=== PATIENT | female | born 1980 | race Caucasian/White ===

== ENCOUNTER 2017-07-15 23:09 | Emergency (ER) | payer BC ==
[~2017-07-15] VITALS: Ht 157.5 cm; Wt 69.1 kg
[~2017-07-15 23:09] MED LIST: AMOXICILLIN 50500 MG PO; DOXYCYCLINE 10100 MG PO; FLEXERIL10 MG PO; LORTAB 5/500 501 TAB PO; MACROBID100 MG PO; NAPROSYN500 MG PO; NITROFURANTOIN; NO HOME MEDICATIONS; PREDNISONE20 MG PO; PROAIR HFA0.09 MG/AC IH; ZITHROMAX Z PA250 MG PO; same
[2017-07-15 23:14] VITALS: BP 107/65; TEMP 98.1
[2017-07-16 00:17] VITALS: PULSE 75
== END 2017-07-16 00:15 | disposition home or self-care (01) ==
LOC: COL.ER 23:09
DX: T63.481A Toxic effect of venom of other arthropod, accidental (unintentional), initial encounter (principal); Z23 Encounter for immunization
CPT/HCPCS: J8540

== ENCOUNTER 2020-04-05 06:51 | Emergency (ER) | payer SELFPAY ==
[~2020-04-05] VITALS: Ht 157.5 cm; Wt 77.3 kg
[2020-04-05 06:57] VITALS: BP 122/75; TEMP 98.3
[2020-04-05] MEDS ORDERED: FLEXERIL 1010 MG/TAB PO (07:19)
[2020-04-05 08:02] VITALS: PULSE 57
== END 2020-04-05 08:02 | disposition home or self-care (01) ==
LOC: COL.ER 06:51
DX: M54.5 Low back pain (principal); Z98.51 Tubal ligation status
CPT/HCPCS: J1885

== ENCOUNTER 2020-11-02 06:40 | Emergency (ER) | payer OTHER ==
[~2020-11-02] VITALS: Ht 157.5 cm; Wt 68.2 kg
[~2020-11-02 06:40] MED LIST changes: +FLEXERIL 1010 MG/TAB PO
[2020-11-02 06:56] VITALS: TEMP 98.2
[2020-11-02 08:00] LABS: BASO % 0.3 % (0.0-2.0); EOS # 0.1 (0.0-0.7); EOS % 1.7 % (0-4.0); GRAN # 5.2 (1.4-6.5); GRAN % 72.5 % (42.2-75.2); HEMATOCRIT 37.6 % (37.0-47.0); HEMOGLOBIN 12.5 g/dl (12.5-16.0); LYMPH # 1.3 (1.2-3.4); MEAN CELL VOLUME 86 fl (80.0-100.0); MEAN CORPUSCULAR HEMOGLOBIN 29 pg (27.0-31.0); MEAN CORPUSCULAR HGB CONC 33 g/dl (33.0-37.0); MEAN PLATELET VOLUME 10.3 fl (7.4-10.4); MONO # 0.5 (0.1-0.6); MONO % 7.2 % (1.7-9.3); PLATELET COUNT 245 K/mm3 (130-400); RED BLOOD COUNT 4.35 M/mm3 (4.10-5.30); REDCELL DISTRIBUTION WIDTH-CV 12.6 % (11.5-14.5)
[2020-11-02 08:06] LABS: ALBUMIN 3.9 gm/dL (3.5-5.0); BILIRUBIN,TOTAL 0.3 mg/dL (0.0-1.0); CALCIUM 8.7 mg/dL (8.4-10.2); CREATININE, serum 0.85 (0.52-1.25); POTASSIUM 3.9 mmol/L (3.4-5.0)
[2020-11-02 09:44] VITALS: BP 118/74; PULSE 68
== END 2020-11-02 09:45 | disposition home or self-care (01) ==
LOC: COL.ER 06:40
PROVIDERS: Emergency Medicine
DX: U07.1 COVID-19 (principal); S40.862A Insect bite (nonvenomous) of left upper arm, initial encounter; J20.9 Acute bronchitis, unspecified; M54.5 Low back pain; J02.0 Streptococcal pharyngitis; Z53.21 Procedure and treatment not carried out due to patient leaving prior to being seen by health care provider; Z90.89 Acquired absence of other organs

== ENCOUNTER → 2020-11-24 | Outpatient (CLI) | payer OTHER ==
[2005-09-04 08:39] VITALS: TEMP 97.4
== END ==
LOC: COL.RAD 09:37
DX: R10.11 Right upper quadrant pain (principal)
CPT/HCPCS: A9537; J2805

== ENCOUNTER 2020-12-10 07:01 | Day surgery (SDC) | payer OTHER ==
[2020-12-10] VITALS (7 sets, daily range): BP systolic 108–156; BP diastolic 63–83; PULSE 49–78; TEMP 97.2–98.6
[~2020-12-10] VITALS: Ht 157.5 cm; Wt 74.9 kg
[2020-12-10] MEDS ORDERED: ZOO CHEWS1 CTB PO (07:50)
[2020-12-10] MEDS ORDERED: VITAMINC1000TA PO (07:50)
[2020-12-10] MEDS ORDERED: PROTONIX 40MG T40 MG PO (07:51)
[2020-12-10] MEDS ORDERED: ZOFRAN8 MG PO (07:52)
[2020-12-10] MEDS ORDERED: PHENERGAN 25 TA25 MG PO (07:53)
[2020-12-10] MEDS ORDERED: NORCO 325 MG-51 TAB PO (09:37)
== END 2020-12-10 11:45 | disposition home or self-care (01) ==
LOC: SDCO 07:01
DX: K81.1 Chronic cholecystitis (principal); B96.81 Helicobacter pylori [H. pylori] as the cause of diseases classified elsewhere; J45.909 Unspecified asthma, uncomplicated
CPT/HCPCS: J0690; J1100; J1885; J2405; J3010; J7120